=== PATIENT | male | born 1990 ===

== ENCOUNTER 2017-05-01 19:46 | Inpatient (IN) | payer BC, OTHER ==
[~2017-05-01] VITALS: Ht 177.8 cm; Wt 83.9 kg
[2017-05-01 21:45] VITALS: BP 116/69
--- NOTE | 2017-05-01 21:45 | NUR ---
PRE-ADMISSION NOTE: Patient assessed in intake office at 21:45 on 05/01/2017. Patient is ambulatory with steady gate, stable, AOx4, speech is soft and clear. Patient states that he is here, in the [facility] "first time for Safety Detox from Xanax, Valium, Heroin and Cocaine". Patient states that he last used Heroin via IV: " 0.5 gram today, 05/01/17 at 17:00". Patient reports that used Xanax "0.5 mg PO today, 05/01/17 at 1800", and Valium "40 mg PO today at 1800". Cocaine IV: " 0,5 gram on 04/29/2017". Patient reports last cigarettes smoked today at 2100. VS: T: 98'4; BP: 116/69; HR: 87; RR: 19; O2 SAT: 97%. Patient c/o body aches "02/08". Patient reports season allergy. Patients denies Seizures Hx r/t withdrawal from substances. COWS 7. The patient presented with anxiety, agitation, nervousness, tremors, diaphoresis, abdominal cramps, restless legs, headache, body aches, insomnia and fatigue. Patient denies SI/HI. Respirations are even and unlabored. Patient denies SOB and chest pain. Last BM was "today, 05/01/17 at 15:00". Patient instructed on unit protocol of vitals Q4H and COWS/CIWA assessments. Patient verbalized understanding and agreement. Patient also instructed on policy regarding destruction of any controlled substances/prescriptions brought to facility, and handling of all medications. Patient verbalized understanding and agreement. Will complete admission assessment when patient is brought up to unit. Addendum: 05/02/17 at 0114 by MAYCOL GARCIA RN LEANDER 6, COWS 7.
--- NOTE | 2017-05-01 22:06 | NUR ---
ADMISSION NOTE: New admission is a 27 year old male on serenity floor at 2206 on 05/01/2017. Patient states that he is here, in the [facility] "first time for Safety Detox from Xanax, Valium, Heroin and Cocaine". Pre-assessment completed in intake. No UDS Test provided. VS completed upon admission: T: 98'4; BP: 116/69; HR: 87; RR: 19; O2 SAT: 97%. Patient c/o body aches "02/08". Patient reports season allergy. Patient placed on Full Code, Regular Diet, Fall and Seizures Precautions. Patients denies Seizures Hx r/t withdrawal from substances. COWS 7, CIWA 6. The patient presented with anxiety, agitation, nervousness, tremors, diaphoresis, abdominal cramps, restless legs, headache, body aches, insomnia and fatigue. Patient denies SI/HI. Height: 70 in, and weight by standing scale: 185 lbs. Respirations are even and unlabored. Patient denies SOB and chest pain. Patient has no PCP. Patient admitted under the care of Brian Dorsey MD. Patient reports the following substances use: Xanax PO: Patient reports taking "0.5 mg every day. Last use was 0.5 mg on 05/01/17 at 1800". Patient reports relapsing four months ago, and has been using at this rate for our months. Valium PO: Patient reports taking "40 mg every day. Last use was 40 mg on 05/01/17 at 1800". Patient reports relapsing four months ago, and has been using at this rate for our months. Heroin IV: Patient reports taking "0.5-0.85 grams every day. Last use was 0.5 gram on 05/01/17 at 1700". Patient reports relapsing four months ago, and has been using at this rate for our months. Cocaine IV: Patient reports taking "1 grams three times at week. Last use was 1 gram on 04/29/17". Patient reports relapsing four months ago, and has been using at this rate for our months. Patient reports smoking 20 cigarettes daily since"2006". Written smoking cessation education provided. Patient Verbalizes understanding. Patient brought home medications: empty carton with prescriptions for Gabapentin, and 12 films of Suboxone. Patient reports he is not taking home medications "one year". Patient reports treatment history: "[place], [place] since April, to August,". Patient report being sober for 10 months since April, to January,". Patient reports Past Medical History: Anxiety, Depression, Torn of Right shoulder w/o Sx, Substance Abuse. Patient is ambulatory with steady gate, stable, AOx4, speech is soft and clear. Respirations unlabored and even. Lungs Sounds are clear bilaterally. Bowel Sounds active in all x4 quadrants. Last Bowel Movement was "05/01/17 at 1500". Skin is intact, warm and dry to touch. Patient has bilateral upper extremities healed, not open abscesses. Encouraged fluids as tolerated. Patient oriented to floor and room, explained how to use call light. Patient verbalized understanding. Safety measures on place. Call light within reach, bed in lowest position and locked, padded rails up bilaterally rails up bilaterally. Will continue to monitor closely.
[2017-05-01] MEDS ORDERED: DICYCLOMINE HCL 20 MG TABLET PO PRN (22:45)
[2017-05-01] MEDS ORDERED: MIRALAX 17 GM POWD.PACK PO PRN (22:45)
[2017-05-01] MEDS ORDERED: MAGNESIUM HYDROXIDE 30 ML LIQUID UDC PO PRN (22:45)
[2017-05-01] MEDS ORDERED: HYDROXYZINE PAMOATE 25 MG CAPSULE PO PRN (22:45)
[2017-05-01] MEDS ORDERED: CLONIDINE HCL 0.1 MG TABLET PO PRN (22:45)
[2017-05-01] MEDS ORDERED: ONDANSETRON 4 MG/2 ML VIAL IM PRN (22:45)
[2017-05-01] MEDS ORDERED: LOPERAMIDE HCL 2 MG CAPSULE PO PRN ×2 (22:45)
[2017-05-01] MEDS ORDERED: IBUPROFEN 400 MG TABLET PO PRN (22:45)
[2017-05-01] MEDS ORDERED: LORAZEPAM 2 MG/1 ML VIAL IM PRN (22:45)
[2017-05-01] MEDS ORDERED: BUPRENORPHINE HCL 2 MG TAB.SUBL SL PRN (22:45)
[2017-05-01] MEDS ORDERED: MAG HYDROX/AL HYDROX/SIMETH 30 ML LIQUID UDC PO PRN (22:45)
[2017-05-01] MEDS ORDERED: METHOCARBAMOL 750 MG TABLET PO PRN (22:45)
[2017-05-01] MEDS ORDERED: ONDANSETRON ODT 4 MG TAB.RAPDIS SL PRN (22:45)
[2017-05-01] MEDS ORDERED: LORAZEPAM 1 MG TABLET PO PRN ×2 (22:45)
[2017-05-01 23:41] LABS: BASOPHILS # (AUTO) 0.1 K/uL (0.0-8.0); BASOPHILS % (AUTO) 0.5 % (0.0-2.0); EOSINOPHILS # (AUTO) 0.2 K/uL (0.0-0.7); EOSINOPHILS % (AUTO) 1.4 % (0.0-7.0); HEMATOCRIT 38.5 % (40-50); HEMOGLOBIN 12.5 G/DL (14.0-18.0); LYMPHOCYTES # (AUTO) 2.9 K/UL (0.8-4.8); LYMPHOCYTES % (AUTO) 24.4 % (20.5-51.5); MEAN CORPUSCULAR HEMOGLOBIN 27.7 UUG (27.0-31.0); MEAN CORPUSCULAR HGB CONC 32 g/dL (32.0-37.0); MEAN CORPUSCULAR VOLUME 85.4 FL (82.0-92.0); MONOCYTES # (AUTO) 0.8 K/UL (0.1-1.30); MONOCYTES % (AUTO) 6.8 % (0.0-11.0); NEUTROPHILS # (AUTO) 7.7 K/UL (1.8-8.9); NEUTROPHILS % (AUTO) 66.9 % (38.5-71.5); PLATELET COUNT (AUTO) 242 K/UL (150-450); RED BLOOD CELL COUNT(AUTO) 4.51 MIL/UL (4.7-6.1); WHITE BLOOD COUNT (AUTO) 11.7 K/UL (4.0-11.2)
[2017-05-02] VITALS: BP 106/47
[2017-05-02 01:00] LABS: ETHANOL < 3 MG/DL (0-0)
[2017-05-02] MEDS ORDERED: BUPR1FIL3 SL (01:05)
[2017-05-02] MEDS ORDERED: GABA800T2 PO (01:07)
[2017-05-02 03:28] LABS: ALANINE AMINOTRANSFERASE 17 U/L (16-63); ALKALINE PHOSPHATASE 43 U/L (50-136); AMYLASE 52 U/L (25-115); ASPARTATE AMINOTRANSFERASE 19 U/L (15-37); BILIRUBIN,TOTAL 0.2 mg/dL (0.2-1.0); CARBON DIOXIDE 25 mmol/L (21-32); CHLORIDE 104 mmol/L (98-107); CREATININE 1.2 mg/dL (0.6-1.3); GLUCOSE 153 mg/dL (74-106); LIPASE 117 U/L (73-393); MAGNESIUM 1.8 mg/dL (1.8-2.4); POTASSIUM 3.6 mmol/L (3.5-5.1); TOTAL PROTEIN, SERUM 6.9 g/dL (6.4-8.2); UREA NITROGEN, BLOOD 19 mg/dL (7-18)
[2017-05-02 03:37] LABS: THYROID STIMULATING HORMONE 0.466 mIU/mL (0.358-3.740)
[2017-05-02 04:00] VITALS: BP 114/72
[2017-05-02] MEDS ORDERED: DIAZEPAM 10 MG TABLET PO PRN ×2 (06:00)
[2017-05-02] MEDS ORDERED: DIAZEPAM 5 MG TABLET PO PRN (06:00)
--- NOTE | 2017-05-02 07:20 | NUR ---
END OF SHIFT NOTE: Patient is a 27 year old male admitted to [facility] at 2206 on 05/01/2017 for Benzodiazepines and Opioid Dependence. Patient admitted under the care of Brian Dorsey MD. Patient reports season allergy. Patient placed on Full Code, Regular Diet, Fall and Seizures Precautions. Patients denies Seizures Hx r/t withdrawal from substances. Patient reports Past Medical History: Anxiety, Depression, Torn of Right shoulder w/o Sx, Substance Abuse. Patient reports the following substances use: Xanax PO: Patient reports taking "0.5 mg every day. Last use was 0.5 mg on 05/01/17 at 1800". Patient reports relapsing four months ago, and has been using at this rate for four months. Valium PO: Patient reports taking "40 mg every day. Last use was 40 mg on 05/01/17 at 1800". Patient reports relapsing four months ago, and has been using at this rate for our months. Heroin IV: Patient reports taking "0.5-0.85 grams every day. Last use was 0.5 gram on 05/01/17 at 1700". Patient reports relapsing four months ago, and has been using at this rate for our months. Cocaine IV: Patient reports taking "1 grams three times at week. Last use was 1 gram on 04/29/17". Patient reports relapsing four months ago, and has been using at this rate for our months. Patient reports smoking 20 cigarettes daily since"2006". Written smoking cessation education provided. Patient Verbalizes understanding. Patient reports treatment history: "[place], [place] since April, to August,". Patient report being sober for 10 months since April, to January,". Last COWS at 0400 decreased from 7 to 6, CIWA at 0400 decreased from 6 to 4. Patient presented with anxiety, agitation, nervousness, tremors, diaphoresis, abdominal cramps, restless legs, headache, body aches, insomnia and fatigue. Patient denies SI/HI. VS at 0400: VS: T: 98.2; HR: 84; BP: 114/72, RA O2Sat: 96%, RR: 16. Pain Level: "0/10". Respirations are even and unlabored. Patient denies SOB and chest pain. .Respirations unlabored and even. Last Bowel Movement was "05/01/17 at 1500". Skin is warm and dry to touch. Patient has bilateral upper extremities healed, not open abscesses. Encouraged fluids as tolerated. Patient slept 5 hours, intake 500 ml, voided x1. Safety measures on place. Call light within reach, bed in lowest position and locked, padded rails up bilaterally rails up bilaterally. Will continue to monitor closely.
--- NOTE | 2017-05-02 07:50 | NUR ---
START OF SHIFT NOTE Received report from night nurse, 27 year old male admitted for BENZOand Opioid Dependence. Pt reported seasonal allergy,Full Code, Regular Diet, Fall and Seizures Precautions. Pt reported PMH of Anxiety, Depression, Torn of Right shoulder w/o Sx, Substance Abuse. Pt did not receive any PRN, last CIWA-4, COWS-6, slept for 5 hours. Pt received awake, alert and oriented x4, educated regarding plan of care for the day and medication regimen with good verbal understanding. will continue to monitor, safety measures in place.
[2017-05-02 08:00] VITALS: BP 108/62
[2017-05-02] MEDS: MULTIVITAMINS,THERAPEUTIC TABLET PO SCH (08:31)
[2017-05-02 09:00] LABS: *AMPHETAMINE, URINE NEGATIVE (NEGATIVE); *BARBITURATE, URINE NEGATIVE (NEGATIVE); *CANNABINOID, URINE NEGATIVE (NEGATIVE); *COCCAINE, URINE POSITIVE (NEGATIVE); *OPIATE, URINE POSITIVE (NEGATIVE); *PHENCYCLIDINE SCREEN,URINE NEGATIVE (NEGATIVE)
[2017-05-02] MEDS ORDERED: TUBERCULIN,PURIF.PROT.DERIV. 5 TU/0.1 ML TEST ID ONE (09:00)
[2017-05-02 12:00] VITALS: BP 123/69
[2017-05-02] MEDS: GABAPENTIN 400 MG CAPSULE PO SCH ×2 (12:31→16:33)
[2017-05-02] MEDS: DIAZEPAM 10 MG TABLET PO SCH ×3 (12:31→20:15)
[2017-05-02] MEDS ORDERED: Medication Not On Formulary EA (Gabapentin 1 TAB) PO SCH (13:00)
[2017-05-02 16:00] VITALS: BP 106/62
[2017-05-02] MEDS: BUPRENORPHINE HCL 2 MG TAB.SUBL SL SCH ×2 (16:34→20:16)
--- NOTE | 2017-05-02 18:58 | NUR ---
START OF SHIFT NOTE: Patient is a 27 year old male admitted to [facility] at 2206 on 05/01/2017 for Benzodiazepines and Opioid Dependence, placed on 5 day Valium and 5 day Subutex taper since 05/02/17. Patient tolerated well. Patient reports season allergy. Patient is on Full Code, s on Regular Diet, is on Fall and Seizures Precautions. Patients denies Seizures Hx r/t withdrawal from substances. Patient reports Past Medical History: Anxiety, Depression, Torn of Right shoulder w/o Sx, Substance Abuse. Patient reports treatment history: "[place], [place] since April, to August,". Patient report being sober for 10 months since April, to January,". COWS 7, CIWA 6. Patient presented with anxiety, agitation, nervousness, tremors, diaphoresis, abdominal cramps, restless legs, headache, body aches, insomnia and fatigue. Patient denies SI/HI. VSWNL. Respirations are even and unlabored. Patient denies SOB and chest pain. .Respirations unlabored and even. Last Bowel Movement was "05/02/17 at 1000". Skin is warm and dry to touch. Patient has bilateral upper extremities healed, not open abscesses. Encouraged fluids as tolerated. Safety measures on place. Call light within reach, bed in lowest position and locked, padded rails up bilaterally rails up bilaterally. Will continue to monitor closely.
--- NOTE | 2017-05-02 18:58 | NUR ---
END OF SHIFT NOTE Patient started on Subutex and Valium taper during shift and tolerating well. Patient rested in bed during shift and did not attend groups or activities. Vital signs stable during shift. Last CIWA 7 14. Encouraged PO fluids as tolerated. Patient presents with s/s of w/d and managing with detox Meds. Encouraged pt to notify the nurse if symptoms worsen. Fall and seizure precautions observed at all times, all needs met and rendered, will continue to monitor. Patient endorsed to manufacturing supervisor 2nd shift nurse in stable condition.
[2017-05-02 20:00] VITALS: BP 115/60
[2017-05-03] VITALS: BP 112/64
[2017-05-03] MEDS: diphenhydrAMINE 50 MG CAPSULE PO PRN ×2 (00:47→23:57)
--- NOTE | 2017-05-03 00:47 | NUR ---
PRN BENADRYL 50 MG 1 CAPS PO AND PRN VISTARIL 20 MG 2 CAPS PO ADMINISTRATION Patient c/o insomnia and increased anxiety. Patient 's assessed. COWS 7, CIWA 6. Patient presented with anxiety, agitation, nervousness, restlessness, tremors that can be felt, sweating, and yawning. Patient denies suicidal and homicidal ideation. VSWNL. PRN Benadryl 50mg 1 caps PO and PRN Vistaril 50 mg 2 caps PO administrated as ordered with full glass of water. Safety measures on place. Call light within reach, bed in lowest position and locked, added rails up bilaterally rails up bilaterally. Will continue to monitor closely. Addendum: 05/03/17 at 0100 by MAYCOL GARCIA RN padded rails up bilaterally.
--- NOTE | 2017-05-03 01:47 | NUR ---
RE-ASSESSMENT Patient is sleeping. Respirations even and unlabored. RR:14. PRN Benadryl PO and PRN Vistaril PO were effective. Safety measures on place. Call light within reach, bed in lowest position and locked, padded rails up bilaterally rails up bilaterally. Will continue to monitor closely.
[2017-05-03 04:00] VITALS: BP 112/66
--- NOTE | 2017-05-03 07:20 | NUR ---
END OF SHIFT NOTE: Patient is a 27 year old male admitted to [facility] at 2206 on 05/01/2017 for Benzodiazepines and Opioid Dependence. Patient admitted under the care of Brian Dorsey MD. Patient reports season allergy. Patient placed on Full Code, Regular Diet, Fall and Seizures Precautions. Patients denies Seizures Hx r/t withdrawal from substances. Patient reports Past Medical History: Anxiety, Depression, Torn of Right shoulder w/o Sx, Substance Abuse. Patient reports the following substances use: Xanax PO: Patient reports taking "0.5 mg every day. Last use was 0.5 mg on 05/01/17 at 1800". Patient reports relapsing four months ago, and has been using at this rate for four months. Valium PO: Patient reports taking "40 mg every day. Last use was 40 mg on 05/01/17 at 1800". Patient reports relapsing four months ago, and has been using at this rate for our months. Heroin IV: Patient reports taking "0.5-0.85 grams every day. Last use was 0.5 gram on 05/01/17 at 1700". Patient reports relapsing four months ago, and has been using at this rate for our months. Cocaine IV: Patient reports taking "1 grams three times at week. Last used 1 gram on 04/29/17". Patient reports relapsing four months ago, and has been using at this rate for our months. Patient reports smoking 20 cigarettes daily since"2006". Written smoking cessation education provided. Patient Verbalizes understanding. Patient reports treatment history: "[place], [place] since April, to August,". Patient report being sober for 10 months since April, to January,". Last COWS at 0400 decreased from 7 to 4 ,CIWA at 0400 decreased from 6 to 3. During rehab spec patient presented with anxiety, agitation, nervousness, tremors, diaphoresis, abdominal cramps, restless legs, headache, body aches, insomnia and fatigue. Patient denies SI/HI. VS at 0400: VS: T: 98.1; HR: 87; BP: 112/66; RA O2Sat: 97%, RR: 17. Pain Level: "0/10". Respirations are even and unlabored. Patient denies SOB and chest pain. Respirations unlabored and even. Skin is warm and dry to touch. Patient has bilateral upper extremities healed, not open abscesses. Encouraged fluids as tolerated. PRN Benadryl 50 mg 1 capsule PO and PRN Vistaril 50 mg 2 capsules administrated for anxiety and insomnia as ordered were effective. Patient slept 9 hours, intake 850 ml, voided x1. Safety measures on place. Call light within reach, bed in lowest position and locked, padded rails up bilaterally rails up bilaterally.
[2017-05-03 08:00] VITALS: BP 112/72
--- NOTE | 2017-05-03 08:05 | NUR ---
START OF SHIFT NOTE Received report from night nurse, 27 year old male admitted for BENZO and Opioid Dependence. Pt reported seasonal allergy,Full Code, Regular Diet, Fall and Seizures Precautions. Pt reported PMH of Anxiety, Depression, Torn of Right shoulder w/o Sx, Substance Abuse.Pt received PRN Benadryl/Vistaril effective per night nurse, last CIWA-3, COWS-4, slept for 9 hours. Pt received awake, alert and oriented x4, educated regarding plan of care for the day and medication regimen with good verbal understanding. will continue to monitor, safety measures in place.
[2017-05-03] MEDS: DIAZEPAM 10 MG TABLET PO SCH ×3 (08:54→20:43)
[2017-05-03] MEDS: MULTIVITAMINS,THERAPEUTIC TABLET PO SCH (08:54)
[2017-05-03] MEDS: GABAPENTIN 400 MG CAPSULE PO SCH ×3 (08:54→16:48)
[2017-05-03] MEDS: BUPRENORPHINE HCL 2 MG TAB.SUBL SL SCH ×3 (08:54→20:43)
--- NOTE | 2017-05-03 10:04 | NUR ---
Therapist prompted client about group times. Client stated he would try to go tomorrow if he is feeling better.
[2017-05-03 12:00] VITALS: BP 110/71
[2017-05-03 16:00] VITALS: BP 122/66
--- NOTE | 2017-05-03 19:06 | NUR ---
END OF SHIFT NOTE Endorsed Pt to rn shift mgr nurse. Patient is AOX4. Patient cont on Subutex and Valium taper tolerating well. Patient rested in bed during shift and did not attend groups or activities. Vital signs stable during shift. Encouraged PO fluids as tolerated. Pt did not receive any PRN medications. Patient encouraged to attend group therapies/sessions to learn new coping skills to prevent relapse, patient denies SI/HI. Fall and seizure precautions observed at all times, all needs met and rendered, Safety measures in place. Call light kept within reach. Patient endorsed to rn shift mgr nurse, all pertinent information discussed. Patient endorsed to rn shift mgr nurse in stable condition.
--- NOTE | 2017-05-03 19:15 | NUR ---
START of SHIFT NOTE : Pt. is 27 year old male admitted for BENZO and Opioid Dependence. Pt reported seasonal allergy, Full Code, Regular Diet, Fall and Seizures Precautions. Pt reported PMH of Anxiety, Depression, Torn of Right shoulder w/o Sx, Substance Abuse. Pt received awake, alert and oriented x4, educated regarding plan of care for the day and medication regimen with good verbal understanding. Safety measures in place : bed on lowest position with side rails x2 up for safety, call light within reach. Will continue to monitor closely and offer help
[2017-05-03 20:00] VITALS: BP 115/74
[2017-05-03] MEDS: CLONIDINE HCL 0.1 MG TABLET PO SCH (20:43)
[2017-05-04] VITALS: BP 120/72
--- NOTE | 2017-05-04 | NUR ---
PRN BENADRYL Pt. complains of sleeplessness. PRN BENADRYL given as ordered. Safety measures in place : bed on lowest position with side rails x2 up for safety, call light within reach. Will continue to monitor closely and offer help
--- NOTE | 2017-05-04 01:00 | NUR ---
REASSESSMENT KELVIN Pt. is sleeping, RR=16, unlabored and even. Safety measures in place : bed on lowest position with side rails x2 up for safety, call light within reach. Will continue to monitor closely and offer help
--- NOTE | 2017-05-04 06:36 | NUR ---
END of SHIFT NOTE : Pt. is 27 year old male admitted for BENZO and Opioid Dependence. Pt reported seasonal allergy, Full Code, Regular Diet, Fall and Seizures Precautions. Pt reported PMH of Anxiety, Depression, Torn of Right shoulder w/o Sx, Substance Abuse. Pt received awake, alert and oriented x4, educated regarding plan of care for the day and medication regimen with good verbal understanding. Pt remains compliant with the treatment plan. PRN BENADRYL given during my shift. V/S remain WNL. RR=16, even and unlabored, lungs clear upon auscultation, abdomen soft and non- distended. Pt denies nausea, vomiting and diarrhea. LAST CIWA=3 ,COWS=3 at 0400 , [id number] ml, voided x1,200 , slept 1 hours[address] Safety measures in place : bed on lowest position with side rails x2 up for safety, call light within reach. Will continue to monitor closely and offer help
[2017-05-04 07:40] LABS: BASOPHILS # (AUTO) 0.1 K/uL (0.0-8.0); BASOPHILS % (AUTO) 0.6 % (0.0-2.0); EOSINOPHILS # (AUTO) 0.3 K/uL (0.0-0.7); EOSINOPHILS % (AUTO) 2.4 % (0.0-7.0); HEMATOCRIT 42.5 % (40-50); HEMOGLOBIN 13.6 G/DL (14.0-18.0); LYMPHOCYTES # (AUTO) 3.6 K/UL (0.8-4.8); LYMPHOCYTES % (AUTO) 34.3 % (20.5-51.5); MEAN CORPUSCULAR HEMOGLOBIN 27.3 UUG (27.0-31.0); MEAN CORPUSCULAR HGB CONC 32 g/dL (32.0-37.0); MONOCYTES # (AUTO) 0.7 K/UL (0.1-1.30); MONOCYTES % (AUTO) 6.3 % (0.0-11.0); NEUTROPHILS # (AUTO) 5.8 K/UL (1.8-8.9); NEUTROPHILS % (AUTO) 56.4 % (38.5-71.5); PLATELET COUNT (AUTO) 238 K/UL (150-450); WHITE BLOOD COUNT (AUTO) 10.5 K/UL (4.0-11.2)
--- NOTE | 2017-05-04 07:41 | NUR ---
BEGINNING OF SHIFT Patient endorsement report received from manufacturing shift supervisor nurse, all pertinent information discussed. Patient is a 27 year old male admitted on: 05/01/2017, with admitting Dx: BZO/opiate dependence, Patient currently with ongoing taper of 5 day Valium, and 5 day Subutex taper as ordered and is on day 2 of taper. will monitor cow/ciwa scores and vital signs closely. As per manufacturing shift supervisor patient received PRN: Benadryl during manufacturing shift supervisor. fall and seizure precautions observed closely at all times. Patient slept for 7 hours., as per manufacturing shift supervisor last ciwa score of: 3 and last cow score of: 3. Patient received, awake alert and oriented x4. Educated regarding plan of care for the day and medication regimen. Safety measures in place. Fall and seizure precautions observed at all times. Will continue to monitor closely.
[2017-05-04 08:24] VITALS: BP 137/60
[2017-05-04 08:51] LABS: CREATININE 1.2 mg/dL (0.6-1.3); MAGNESIUM 1.9 mg/dL (1.8-2.4); POTASSIUM 3.5 mmol/L (3.5-5.1)
[2017-05-04] MEDS: GABAPENTIN 400 MG CAPSULE PO SCH ×3 (08:58→16:17)
[2017-05-04] MEDS: MULTIVITAMINS,THERAPEUTIC TABLET PO SCH (08:59)
[2017-05-04] MEDS: DIAZEPAM 5 MG TABLET PO SCH ×4 (08:59→22:12)
[2017-05-04] MEDS: CLONIDINE HCL 0.1 MG TABLET PO SCH ×3 (08:59→22:12)
[2017-05-04] MEDS ORDERED: BUPRENORPHINE HCL 2 MG TAB.SUBL SL SCH (09:00)
[2017-05-04 10:08] LABS: HEPATITIS B SURFACE AG Negative (Negative)
[2017-05-04 14:33] VITALS: BP 145/86
[2017-05-04] MEDS: BUPRENORPHINE HCL 2 MG TAB.SUBL SL SCH ×2 (15:29→22:13)
[2017-05-04 16:17] VITALS: BP 133/88
--- NOTE | 2017-05-04 16:58 | NUR ---
ENDORSED CARE Patient alert and oriented x4, vital signs were stable during shift. Patient with admitting Dx: BZO/ opiate dependence, currently with ongoing taper OF 5 day Valium and 5 day Subutex taper and is currently on day 2 of taper, well tolerated, no ASE noted. continues under close observation. Patient compliant with therapeutic plan of care.0900 assessment patient presented with: c/o chills, mild bone and joint aches, moist eyes, tremors that can be felt but not seen, yawning, mild anxiety, barely sweating, and mild agitation with cow score of: 6 and ciwa score of: 4; 1300 assessment patient presented with c/o chills, mild bone and joint aches, tremors that can be felt but not seen, mild anxiety and barely sweating with cow score of: 4 and ciwa score of: 3; 1700 assessment patient presented with: c/o chills, mild bone and joint aches, tremors that can be felt but not seen, mild anxiety and barely sweating with cow score of: 4 and ciwa score of: 3. During shift, patient was seen by Dr. Haynes, with new orders for Seroquel 50mg Po at bedtime. All due medications administered as ordered, well tolerated, no ASE noted. No PRN medications were administered during shift. Fall and seizure precautions observed at all times. Patient encouraged to attend group therapies/sessions to learn new coping skills to prevent relapse, denies SI/HI. Patients safety measures in place. Call light kept with in reach, fall and seizure precautions observed at all times. all needs met and rendered. Patient endorsed to, nurse, all pertinent information discussed.
--- NOTE | 2017-05-04 17:00 | NUR ---
Assumed Care: Assumed care for the patient at this time. Patient received all due 1700 meds. VS stable. Patient is seen in his room, watching TV. All pertinent information discussed. Continue with fall and seizure precautions. Will continue to monitor.
--- NOTE | 2017-05-04 18:31 | NUR ---
End of Shift Notes: Patient is a 27 year old male admitted for opiate and BZO dependence who was placed on a 5-day Valium and 5-day Subutex taper as ordered. Tolerating well. Prior to admission, patient was using 0.5mg of Xanax, 40 mg of Valium and 0.5 to 0.85 grams of Heroin IV. Last COWS 4, CIWA 3. Per patient, Subutex and Valium has been helping him with his withdrawal symptoms. Compliant with care and treatment. No significant abnormalities noted to the patients VS. Will continue to monitor closely.
--- NOTE | 2017-05-04 19:15 | NUR ---
START OF SHIFT NOTE : Pt. is 27 year old male admitted for BENZO and Opioid Dependence. Pt reported seasonal allergy, Full Code, Regular Diet, Fall and Seizures Precautions. Pt. placed on VALIUM, SUBUTEX taper, started on 05/02/2017. Pt received awake, alert and oriented x4, educated regarding plan of care and medication regimen. . Patient encouraged to attend group therapies/sessions to learn new coping skills to prevent relapse, patient denies SI/HI. Pt remains compliant with the treatment plan. V/S remain WNL. RR=16, even and unlabored, lungs clear upon auscultation, abdomen soft and non- distended. Pt denies nausea, vomiting and diarrhea. Safety measures in place : bed on lowest position with side rails x2 up for safety, call light within reach. Will continue to monitor closely and offer help
[2017-05-04 20:00] VITALS: BP 102/58
--- NOTE | 2017-05-04 22:00 | NUR ---
PRN MOTRIN Pt. complains of toothache, 05/10. PRN MOTRIN given as ordered. Safety measures in place : bed on lowest position with side rails x2 up for safety, call light within reach. Will continue to monitor closely and offer help
[2017-05-04] MEDS: QUETIAPINE FUMARATE 25 MG TABLET PO SCH (22:12)
--- NOTE | 2017-05-04 23:00 | NUR ---
REASSESSMENT LESTER Pt. is sleeping, RR=16, unlabored and even. Safety measures in place : bed on lowest position with side rails x2 up for safety, call light within reach. Will continue to monitor closely and offer help
--- NOTE | 2017-05-05 06:46 | NUR ---
END OF SHIFT NOTE : Pt. is 27 year old male admitted for BENZO and Opioid Dependence. Pt reported seasonal allergy, Full Code, Regular Diet, Fall and Seizures Precautions. Pt. placed on VALIUM, SUBUTEX taper, started on 05/02/2017. Pt received awake, alert and oriented x4, educated regarding plan of care and medication regimen. . Patient encouraged to attend group therapies/sessions to learn new coping skills to prevent relapse, patient denies SI/HI. Pt remains compliant with the treatment plan. V/S remain WNL. RR=16, even and unlabored, lungs clear upon auscultation, abdomen soft and non- distended. Pt denies nausea, vomiting and diarrhea. Pt remains compliant with the treatment plan. No PRNs were given during my shift. V/S remain WNL. RR=16, even and unlabored, lungs clear upon auscultation, abdomen soft and non- distended. Pt denies nausea, vomiting and diarrhea. LAST CIWA= 3 ,COWS= 3 at 0400 , [id number] ml, voided x3 , slept 7 hours. Safety measures in place : bed on lowest position with side rails x2 up for safety, call light within reach. Will continue to monitor closely and offer help
--- NOTE | 2017-05-05 07:28 | NUR ---
BEGINNING OF SHIFT Patient endorsement report received from night filler nurse, all pertinent information discussed. Patient is a 27 year old male admitted on: 05/01/2017, with admitting Dx: BZO/opiate dependence, Patient currently with ongoing taper of 5 day Valium, and 5 day Subutex taper as ordered and is on day 3 of taper. will monitor cow/ciwa scores and vital signs closely. As per night filler patient received PRN: Motrin during night filler. fall and seizure precautions observed closely at all times. Patient slept for 7 hours., as per night filler last ciwa score of: 3 and last cow score of: 3. Patient received, awake alert and oriented x4. Educated regarding plan of care for the day and medication regimen. Safety measures in place. Fall and seizure precautions observed at all times. Will continue to monitor closely.
[2017-05-05 08:05] VITALS: BP 101/60
[2017-05-05] MEDS: FERROUS SULFATE 325 MG TABEC PO SCH (08:56)
[2017-05-05] MEDS: FOLIC ACID 1 MG TABLET PO SCH (08:56)
[2017-05-05] MEDS: GABAPENTIN 400 MG CAPSULE PO SCH ×3 (08:56→16:19)
[2017-05-05] MEDS: DIAZEPAM 5 MG TABLET PO SCH ×3 (08:57→21:41)
[2017-05-05] MEDS: BUPRENORPHINE HCL 2 MG TAB.SUBL SL SCH ×3 (08:57→21:41)
[2017-05-05] MEDS: ASCORBIC ACID 250 MG TABLET PO SCH (08:57)
[2017-05-05] MEDS: MULTIVITAMINS,THERAPEUTIC TABLET PO SCH (08:57)
[2017-05-05] MEDS: CLONIDINE HCL 0.1 MG TABLET PO SCH ×3 (08:59→21:40)
[2017-05-05] MEDS ORDERED: BENZOCAINE ORAL CARE 12 ML BOTTLE MM PRN (11:15)
[2017-05-05] MEDS: IBUPROFEN 600 MG TABLET PO PRN ×2 (11:19→19:02)
--- NOTE | 2017-05-05 11:19 | NUR ---
PRN MOTRIN Patient c/o toothache 05/10, administered Motrin as ordered, will monitor effectiveness of medication.
--- NOTE | 2017-05-05 12:19 | NUR ---
MOTRIN REASSESSMENT Patient reports medication with relief, current pain level 0/10, will continue to monitor.
[2017-05-05 12:50] VITALS: BP 143/98
[2017-05-05 14:52] VITALS: BP 143/98
[2017-05-05 17:25] VITALS: BP 143/78
--- NOTE | 2017-05-05 18:55 | NUR ---
ENDORSED CARE Patient alert and oriented x4, vital signs were stable during shift. Patient with admitting Dx: BZO/ opiate dependence, currently with ongoing taper OF 5 day Valium and 5 day Subutex taper and is currently on day 3 of taper, well tolerated, no ASE noted. continues under close observation. Patient compliant with therapeutic plan of care.0900 assessment patient presented with: c/o chills, mild bone and joint aches, tremors that can be felt but not seen, mild anxiety, and barely sweating with cow score of: 4 and ciwa score of: 3; 1300 assessment patient presented with: heart rate of 103, c/o chills, mild bone and joint aches, tremors that can be felt but not seen, and mild anxiety with cow score of: 6 and ciwa score of: 3. 1700 assessment patient presented with; heart rate of 100, c/o chills, mild bone and joint aches, tremors that can be felt but not seen, and mild anxiety with cow score of: 5 and ciwa score of: 3. All due medications administered as ordered, well tolerated, no ASE noted. PRN: Motrin administered during shift as ordered for toothache , medication with relief. Fall and seizure precautions observed at all times. Patient encouraged to attend group therapies/sessions to learn new coping skills to prevent relapse, denies SI/HI. Patients safety measures in place. Call light kept with in reach, fall and seizure precautions observed at all times. all needs met and rendered. Patient endorsed to, nurse, all pertinent information discussed.
--- NOTE | 2017-05-05 19:03 | NUR ---
PRN MOTRIN Patient c/o toothache 05/10, administered Motrin as ordered, endorsed to night shift manager nurse to f/u effectiveness of medication.
[2017-05-05 20:00] VITALS: BP 148/76
--- NOTE | 2017-05-05 20:00 | NUR ---
Start of Shift Note: Report received from day shift nurse. Pt is a 27 yo male admitted on 05/01/2017 for medically-supervised withdrawal from benzodiazepines, opiates, and cocaine. Pt reports using 0.5mg Xanax, 40mg Valium, 0.5-0.85gm IV heroin daily for four months; pt also reports using 1gm IV cocaine three times per week for four months. Pt is on 5-day Valium and Subutex tapers. Pt received with last COWS=5, CIWA=3, and PRN Motrin x2 was given during day shift for tooth pain. Pt is a full code, on a regular diet, and reports seasonal allergies. Pt reports PMHx: anxiety, depression. Pt received in room and reports anxiety and diaphoresis. Bed is in low position and locked, side rails up x2, call light within reach. Will continue to monitor.
--- NOTE | 2017-05-05 20:05 | NUR ---
PRN Motrin Reassessment: Patient reports that tooth pain is now 2/10. PRN Motrin effective.
[2017-05-05] MEDS: QUETIAPINE FUMARATE 25 MG TABLET PO SCH (21:41)
[2017-05-05] MEDS: ACETAMINOPHEN 325 MG TABLET PO PRN (21:49)
--- NOTE | 2017-05-05 21:49 | NUR ---
PRN Tylenol: Patient complains of tooth pain, rates pain 5/10. Administered PRN Tylenol as ordered. Will continue to monitor.
--- NOTE | 2017-05-05 22:50 | NUR ---
PRN Reassessment: Patient reports that tooth pain is now 1/10 after PRN Tylenol administration.
[2017-05-06] VITALS: BP 98/58
[2017-05-06 04:00] VITALS: BP 88/44
--- NOTE | 2017-05-06 04:00 | NUR ---
COWS/CIWA Deferred: COWS and CIWA assessments are deferred for sleep. All safety precautions are in place. Will continue to monitor. Addendum: 05/06/17 at 0448 by FRANC CRAIG RN Amended: Links added.
--- NOTE | 2017-05-06 06:48 | NUR ---
End of Shift Note: Pt is a 27 yo male admitted to [facility] on 05/01/2017 for medically-supervised withdrawal from benzodiazepines, opiates, and cocaine. Pt reported PMHx of anxiety and depression. Pt is a full code. Pt is on a regular diet. Pt reports seasonal allergies. Pt reported using 0.5mg Xanax, 40mg Valium, 0.5-0.85gm IV heroin daily for four months and was placed on 5-day Valium and Subutex tapers upon admission. Scheduled medication regime effectively managed s/s of withdrawal this shift. Last COWS=1, CIWA=1 at 00:00. PRN Tylenol was given for tooth pain. V/S stable throughout shift. Total fluid intake this shift: 2182 ml; output: urine x 2 and BM x 1. Pt is currently in bed and slept 5 hours this shift. All needs attended and met. Pt endorsed to day shift nurse.
--- NOTE | 2017-05-06 07:36 | NUR ---
START OF SHIFT Pt 27 y/o male admitted for benzodiazepine and opioid dependence. Pt received in room on bed with eyes closed resting, but easily arousable to name. Pt alert and oriented to name, place, and time. Respirations even and unlabored. It was reported that pt slept for 5 hours last night. Bed on lowest position with side rails x 2 up for safety. Call light within reach. No distress noted at this time.
[2017-05-06 08:00] VITALS: BP 104/73
[2017-05-06] MEDS: IBUPROFEN 600 MG TABLET PO PRN ×2 (08:38→15:22)
[2017-05-06] MEDS: GABAPENTIN 400 MG CAPSULE PO SCH ×3 (08:38→16:23)
[2017-05-06] MEDS: MULTIVITAMINS,THERAPEUTIC TABLET PO SCH (08:38)
--- NOTE | 2017-05-06 08:38 | NUR ---
Motrin 600 mg pO given: Patient complained of 6/10 pain related to a toothache. Able to tolerate meals. Medicated patient with Motrin 600 mg PO as ordered. Will monitor for effectiveness.
[2017-05-06] MEDS: ASCORBIC ACID 250 MG TABLET PO SCH (08:39)
[2017-05-06] MEDS: CLONIDINE HCL 0.1 MG TABLET PO SCH ×3 (08:39→21:45)
[2017-05-06] MEDS: BUPRENORPHINE HCL 2 MG TAB.SUBL SL SCH ×2 (08:39→21:45)
[2017-05-06] MEDS: DIAZEPAM 5 MG TABLET PO SCH ×2 (08:39→21:45)
[2017-05-06] MEDS: FOLIC ACID 1 MG TABLET PO SCH (08:39)
[2017-05-06] MEDS: FERROUS SULFATE 325 MG TABEC PO SCH (08:39)
--- NOTE | 2017-05-06 09:38 | NUR ---
Re-assessment: Per patient, PRN Motrin was effective in reducing patient's tootache. PL 12/11.
[2017-05-06 12:00] VITALS: BP 114/71
[2017-05-06 16:00] VITALS: BP 105/61
--- NOTE | 2017-05-06 16:22 | NUR ---
Re-assessment: Per patient, PRN Motrin was effective in reducing patient's toothache. PL 12/11.
--- NOTE | 2017-05-06 19:08 | NUR ---
End of Shift Notes: Patient is a 27 year old male admitted for opiate, BZO and cocaine dependence who was placed on a 5-day Subutex and 5-day Valium taper as ordered. No adverse reactions noted. Has past medical hx of anxiety, depression, torn right shoulder. NKA. FULL CODE. Regular diet. On fall and seizure precautions. VS monitored closely. No significant abnormalities noted. Withdrawal symptoms were closely monitored. Patient presented with anxiety and mild tremors. Initial COWS 3/CIWA 3. Patient was medicated with Motrin 600 mg PO at 0838 and 1522 for toothache with help after 1 hour. Last COWS 2/CIWA 2. Patient compliant with care and treatment. Able to participate in group and therapy sessions. Compliant with care and treatment. All needs met and attended. Will continue to monitor closely.
[2017-05-06 20:00] VITALS: BP 135/87
--- NOTE | 2017-05-06 20:00 | NUR ---
Start of Shift Note: Report received from day shift nurse. Pt is a 27 Y/O male admitted on 05/01/2017 for medically-supervised withdrawal from opiates, benzodiazepines, and cocaine. Pt reports using 0.5-0.85gm IV heroin, 0.5mg Xanax, and 40mg Valium daily for four months; pt also reports using 1gm IV 3x/week for four months. Pt is on 5-day Valium and Subutex tapers with last doses to be administered at 21:00. Pt received with last COWS=2, CIWA=2, and PRN Motrin x2 was given during day shift for tooth pain. Pt is a full code, reports seasonal allergies, and on a regular diet,. Pt reports PMHx: anxiety and depression. Pt received in room and reports anxiety, noted with clammy skin. Bed is in low position and locked, side rails up x2, call light within reach. Will continue to monitor.
[2017-05-06] MEDS: QUETIAPINE FUMARATE 25 MG TABLET PO SCH (21:45)
[2017-05-06] MEDS: ACETAMINOPHEN 325 MG TABLET PO PRN (21:45)
--- NOTE | 2017-05-06 21:47 | NUR ---
PRN Tylenol: Patient complains of tooth pain, rates pain 5/10. Administered PRN Tylenol as ordered. Will continue to monitor.
--- NOTE | 2017-05-06 22:50 | NUR ---
PRN Reassessment: Patient denies pain at this time. PRN Tylenol effective. Will continue to monitor.
[2017-05-07] VITALS: BP 139/85
--- NOTE | 2017-05-07 | NUR ---
COWS/CIWA Deferred: COWS and CIWA deferred for sleep. V/S stable. All safety precautions are in place. Will continue to monitor. Addendum: 05/07/17 at 0012 by FRANC CRAIG RN Amended: Links added.
[2017-05-07 04:00] VITALS: BP 109/61
--- NOTE | 2017-05-07 04:00 | NUR ---
COWS/CIWA Deferred: COWS and CIWA assessments are deferred for sleep. Vital signs stable. All safety precautions are in place. Will continue to monitor. Addendum: 05/07/17 at 0452 by FRANC CRAIG RN Amended: Links added.
--- NOTE | 2017-05-07 06:47 | NUR ---
End of Shift Note: Pt is a Y/O male admitted to [facility] on 05/01/2017 for medically-supervised withdrawal from opiates, benzodiazepines, and cocaine. Reported PMHx: anxiety and depression. Pt is on a regular diet. Pt is a full code. Pt reports seasonal allergies. Pt reported using Valium 40mg/day, Xanax 0.5mg/day, IV heroin 0.5-0.85gm/day for four months. Pt has completed 5-day Valium and Subutex tapers. Scheduled medication regime effectively managed s/s of withdrawal this shift. Last COWS=3, CIWA=3 at 20:00. PRN Tylenol was given for tooth pain, which was effective. V/S stable throughout shift with tachycardia. Total fluid intake this shift: 1900 ml; output: urine x 2 and BM x 1. Pt is currently in bed and slept 6 hours this shift. All needs attended and met. Pt endorsed to day shift nurse.
--- NOTE | 2017-05-07 07:30 | NUR ---
Start of shift note; Received report from night nurse. Patient is a 27 year old male admitted on 05/01/17 for Benzo and Opiate withdrawals. Patient was placed on a Subutex/Valium taper, no adverse reactions noted. Patient reported history of Anxiety, depression, torn of right shoulder. All safety measures secured. Will Continue to monitor patient.
[2017-05-07 08:00] VITALS: BP 106/60
[2017-05-07] MEDS: CLONIDINE HCL 0.1 MG TABLET PO SCH ×3 (09:01→21:20)
[2017-05-07] MEDS: FOLIC ACID 1 MG TABLET PO SCH (09:01)
[2017-05-07] MEDS: FERROUS SULFATE 325 MG TABEC PO SCH (09:01)
[2017-05-07] MEDS: GABAPENTIN 400 MG CAPSULE PO SCH ×3 (09:01→17:11)
[2017-05-07] MEDS: MULTIVITAMINS,THERAPEUTIC TABLET PO SCH (09:01)
[2017-05-07] MEDS: ASCORBIC ACID 250 MG TABLET PO SCH (09:02)
[2017-05-07] MEDS ORDERED: BUPRENORPHINE HCL 2 MG TAB.SUBL SL ONE (10:00)
--- NOTE | 2017-05-07 10:10 | NUR ---
New order; ordered One time dose of Subutex 2mg to complete taper dose, patient's COWS score is 2. Will continue to monitor patient.
[2017-05-07] MEDS: IBUPROFEN 600 MG TABLET PO PRN (11:49)
--- NOTE | 2017-05-07 11:59 | NUR ---
PRN medication; Patient is complaining of tooth pain rated 6/10. PRN Motrin 600mg PO given. Will continue to monitor for effectiveness of medication.
[2017-05-07 12:00] VITALS: BP 124/84
[2017-05-07] MEDS ORDERED: IBUP-1955 PO (12:29)
[2017-05-07] MEDS ORDERED: FOLI1TAB16 PO (12:29)
[2017-05-07] MEDS ORDERED: HYDR-3895 PO (12:29)
[2017-05-07] MEDS ORDERED: METH-406 PO (12:29)
[2017-05-07] MEDS ORDERED: DIPH50CA37 PO (12:29)
[2017-05-07] MEDS ORDERED: ASCO250T5 PO (12:29)
[2017-05-07] MEDS ORDERED: FERR325T28 PO (12:29)
[2017-05-07] MEDS ORDERED: DICY20TA28 PO (12:29)
[2017-05-07] MEDS ORDERED: CLON0.1T14 PO (12:29)
[2017-05-07] MEDS ORDERED: GABA-536 PO (12:29)
[2017-05-07] MEDS ORDERED: QUET25TA PO (12:29)
--- NOTE | 2017-05-07 12:59 | NUR ---
Re-assessment; Patient denies pain at this time. PRN medication is effective.
[2017-05-07 13:20] LABS: *AMPHETAMINE, URINE NEGATIVE (NEGATIVE); *BARBITURATE, URINE NEGATIVE (NEGATIVE); *CANNABINOID, URINE NEGATIVE (NEGATIVE); *COCCAINE, URINE NEGATIVE (NEGATIVE); *OPIATE, URINE NEGATIVE (NEGATIVE); *PHENCYCLIDINE SCREEN,URINE NEGATIVE (NEGATIVE)
[2017-05-07 16:00] VITALS: BP 132/69
--- NOTE | 2017-05-07 18:25 | NUR ---
End of shift note; Patient is AOX4. Patient remained complaint with treatment plan and medication regime. Medications were effective in reducing withdrawal symptoms. Patient is medically cleared for discharge tomorrow. All safety measures secured. Met all needs.
--- NOTE | 2017-05-07 19:45 | NUR ---
START OF SHIFT Received report from day shift nurse. Pt attended a group meeting and returned to his room after. He is a 27 yo male admitted to [facility] on 05/01 for BZD and opiate dependence. He is A&O x4 and ambulatory. He has seasonal allergies, is full code status, and on a regular diet. Pt has a PMH of anxiety, depression, and torn right shoulder. On admission he reported using Xanax 0.5mg per day, valium 40mg per day, heroin IV 0.5-0.85 grams per day, and cocaine IV 1 gram per day. He completed 5 day Subutex and Valium tapers and is scheduled for discharge tomorrow. He reports tooth pain. Minimal s/s of withdrawal noted. He is cooperative with treatment. Fall and seizure precautions in place. Bed is down with call light in reach.
[2017-05-07 20:00] VITALS: BP 134/76
[2017-05-07] MEDS: ACETAMINOPHEN 325 MG TABLET PO PRN (21:20)
[2017-05-07] MEDS: QUETIAPINE FUMARATE 25 MG TABLET PO SCH (21:20)
--- NOTE | 2017-05-07 21:21 | NUR ---
PRN Tylenol and Anbesol Pt c/o tooth pain. PRN Tylenol and Anbesol administered.
--- NOTE | 2017-05-07 22:21 | NUR ---
PRN Tylenol and Anbesol reassessment PRN Tylenol and Anbesol effective. Pt reports pain tooth pain is relieved.
[2017-05-08] VITALS: BP 87/42
--- NOTE | 2017-05-08 | NUR ---
0000 COWS and CIWA deferred COWS and CIWA ordered Q4HWA. Pt is lying in bed resting with eyes closed. Vital signs obtained. Safety measures in place.
[2017-05-08 04:00] VITALS: BP 128/72
--- NOTE | 2017-05-08 04:00 | NUR ---
0400 COWS and CIWA deferred COWS and CIWA ordered Q4HWA. Pt is lying in bed resting with eyes closed. Vital signs obtained. Safety measures in place.
--- NOTE | 2017-05-08 07:11 | NUR ---
END OF SHIFT Report provided to day shift nurse. Pt is getting ready for the day. He is a 27 yo male admitted to [facility] on 05/01 for BZD and opiate dependence. He is A&O x4 and ambulatory. He has seasonal allergies, is full code status, and on a regular diet. Pt has a PMH of anxiety, depression, and torn right shoulder. On admission he reported using Xanax 0.5mg per day, valium 40mg per day, heroin IV 0.5-0.85 grams per day, and cocaine IV 1 gram per day. 5 day valium and 5 day subutex tapers completed yesterday. He is scheduled for discharge today. Minimal s/s of withdrawal. PRN Motrin and Anbesol administered for tooth pain. Last COWS 2 and CIWA 1. He drank 2465 and slept for 6 hours. Fall and seizure precautions in place. Bed is down with call light in reach.
--- NOTE | 2017-05-08 07:15 | NUR ---
start of shift note: received pt from police shift commander nurse, pt is in stable condition at this time, no s/s of pain or discomfort. pt is admitted to [facility] for benzo/opiate/cocaine withdrawal/dependence. pt is set to discharge today. will assist pt in discharging and will continue to monitor pt for any changes. pts last cows 2 and ciwa 1.
[2017-05-08 08:24] VITALS: BP 144/82
[2017-05-08] MEDS: MULTIVITAMINS,THERAPEUTIC TABLET PO SCH (08:24)
[2017-05-08] MEDS: GABAPENTIN 400 MG CAPSULE PO SCH (08:24)
[2017-05-08] MEDS: CLONIDINE HCL 0.1 MG TABLET PO SCH (08:24)
[2017-05-08] MEDS: ASCORBIC ACID 250 MG TABLET PO SCH (08:24)
[2017-05-08] MEDS: FERROUS SULFATE 325 MG TABEC PO SCH (08:24)
[2017-05-08] MEDS: FOLIC ACID 1 MG TABLET PO SCH (08:25)
--- NOTE | 2017-05-08 09:28 | NUR ---
discharge note: pt left the unit in stable condition no s/s of pain,discomfort, or withdrawal symptoms. pt's V/S WNL. pt teaching was administered and pt verbalized understanding. pt's personal belongings were returned to pt. [facility] private car.
== END 2017-05-08 09:28 | disposition home or self-care (01) | DRG 895 ==
LOC: SRC 21:13
PROVIDERS: ADMIT Internal Medicine; ATTEND Internal Medicine
PROC: HZ2ZZZZ Detoxification Services for Substance Abuse Treatment (ICD-10-PCS; principal; 2017-05-01)
PROC: HZ31ZZZ Individual Counseling for Substance Abuse Treatment, Behavioral (ICD-10-PCS; 2017-05-03)
PROC: HZ41ZZZ Group Counseling for Substance Abuse Treatment, Behavioral (ICD-10-PCS; 2017-05-04)
DX: F11.23 Opioid dependence with withdrawal (principal); F14.20 Cocaine dependence, uncomplicated; F13.230 Sedative, hypnotic or anxiolytic dependence with withdrawal, uncomplicated; G47.00 Insomnia, unspecified; F17.210 Nicotine dependence, cigarettes, uncomplicated; F41.9 Anxiety disorder, unspecified; K02.9 Dental caries, unspecified; F32.9 Major depressive disorder, single episode, unspecified; R73.01 Impaired fasting glucose; D50.9 Iron deficiency anemia, unspecified; D52.9 Folate deficiency anemia, unspecified; E86.0 Dehydration; I10 Essential (primary) hypertension; D72.829 Elevated white blood cell count, unspecified
CPT/HCPCS: 36415; 70030-TC; 80307; 80346; 80353; 80361; 82746; 83550; 83690; 83735; 84443; 85025; 86580; 86592; 86705; 86803; 87340; 87806; A9150; G0480; Q0163